=== PATIENT | female | born 2000 | race Caucasian/White ===

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

== ENCOUNTER 2024-12-09 22:21 | Emergency (ER) | payer OTHER ==
[2024-12-09 22:31] VITALS: BP 104/70; PULSE 104; RESP 20; TEMP 98; BMI 22.1
[2024-12-09 23:00] LABS: ABSOLUTE IMMATURE GRANULOCYTES 0.00 x10^3/uL (0.0-0.031); BASOPHILS # 0.04 x10^3/uL (0.01-0.08); EOSINOPHIL % 5.5 % (0.7-5.8); EOSINOPHILS # 0.20 x10^3/uL (0.04-0.36); MCHC 30.9 g/dl (32.2-35.5); MEAN CELL VOLUME 90.2 fl (79.4-94.8); MEAN PLT VOLUME 9.9 fl (9.4-12.3); MONOCYTE # 0.33 x10^3/uL (0.24-0.86); MONOCYTE % 9.1 % (4.7-12.5); RDW 11.4 % (12.1-16.5)
[2024-12-09 23:18] LABS: GLUCOSE,RANDOM 85.0 mg/dL (74-106)
[2024-12-09 23:19] LABS: TOT PROT 7.9 g/dl (6.4-8.2)
[2024-12-09 23:20] LABS: CO2 25.0 mmol/L (21-32)
[2024-12-09 23:21] LABS: ALK PHOS 45.0 U/L (40-150)
[2024-12-09 23:24] LABS: CREATININE 0.54 mg/dL (0.55-1.3); SGOT/AST 20.0 U/L (5-34); SGPT/ALT 15.0 U/L (0-55)
[2024-12-09 23:46] LABS: HEPATITIS B SURF AG NON-MATERN NON-REACTIVE (NONREACTIVE)
[2024-12-09 23:47] LABS: HCV DIAGNOSTIC IN-HOUSE W/RFLX NON-REACTIVE (NONREACTIVE)
[2024-12-09 23:47] LABS: HIV INTERPRETATION NEGATIVE (NEGATIVE)
== END 2024-12-09 23:02 | disposition home or self-care (01) ==
LOC: JERFT 22:21
DX: Z77.21 Contact with and (suspected) exposure to potentially hazardous body fluids (principal)
CPT/HCPCS: 36415; 80053; 85025; 86704; 86803; 87340; 87389; 87517; 99283-25